=== PATIENT | male | born 1930 | race Caucasian/White ===

== ENCOUNTER → 2016-10-07 | Outpatient (CLI) | payer OTHER, BC ==
[2016-10-07 10:02] LABS: BASOPHILS # (AUTO) 0.06 10*3/UL; BASOPHILS % (AUTO) 0.7 % (0-1); EOSINOPHILS % (AUTO) 3.7 % (0-8); HEMATOCRIT 38.9 % (42.0-52.0); HEMOGLOBIN 13.1 g/dL (14.0-18.0); LYMPHOCYTES # (AUTO) 2.48 10*3/uL; MEAN CORPUSCULAR HEMOGLOBIN 32.8 PG (27-31); MEAN CORPUSCULAR HGB CONC 33.7 g/dL (33-37); MEAN CORPUSCULAR VOLUME 97.3 FL (80-90); MONOCYTES # (AUTO) 0.67 10*3/UL (0.3-0.8); MONOCYTES % (AUTO) 8.3 % (5-15); NEUTROPHILS # (AUTO) 4.58 10*3/UL; NEUTROPHILS % (AUTO) 56.6 % (50-80)
[2016-10-07 10:19] LABS: PLATELET MORPHOLOGY COMMENT NORMAL MORPHOLOGY (NORM); RBC MORPHOLOGY COMMENT NORMAL MORPHOLOGY (NORM); WBC MORPHOLOGY COMMENT NORMAL MORPHOLOGY (NORM)
[2016-10-07 10:29] LABS: BUN/CREATININE RATIO 26.66 (6-20); CALCIUM 9.1 mg/dL (8.7-10.7); CHOL/HDL RATIO 5.93 RATIO (0-4.0); LDL CHOLESTEROL,CALCULATED 128.2 mg/dL
== END ==
LOC: LAB 09:35
PROVIDERS: ATTEND Internal Medicine
DX: E03.9 Hypothyroidism, unspecified (principal); E78.00 Pure hypercholesterolemia, unspecified; I25.10 Atherosclerotic heart disease of native coronary artery without angina pectoris
CPT/HCPCS: 36415; 80053; 80061; 84443; 85025

== ENCOUNTER → 2016-10-15 | Outpatient (CLI) | payer OTHER, BC | LOC: MMPC 11:11 | PROVIDERS: ATTEND Internal Medicine | DX: R19.4 Change in bowel habit (principal); N40.0 Benign prostatic hyperplasia without lower urinary tract symptoms; R53.83 Other fatigue; M15.9 Polyosteoarthritis, unspecified | CPT/HCPCS: 99214; G0463 ==

== ENCOUNTER → 2016-11-23 | Outpatient (CLI) | payer OTHER, BC | LOC: LAB 10:57 | PROVIDERS: ATTEND Internal Medicine | DX: N40.0 Benign prostatic hyperplasia without lower urinary tract symptoms (principal); Z12.5 Encounter for screening for malignant neoplasm of prostate | CPT/HCPCS: 36415; G0103 ==

== ENCOUNTER → 2016-11-25 | Outpatient (CLI) | payer OTHER, BC | LOC: MMPC 11:11 | PROVIDERS: ATTEND Internal Medicine | DX: R35.0 Frequency of micturition (principal); E03.9 Hypothyroidism, unspecified; M15.9 Polyosteoarthritis, unspecified; G47.34 Idiopathic sleep related nonobstructive alveolar hypoventilation | CPT/HCPCS: 99214; G0463 ==

== ENCOUNTER → 2016-12-07 | Outpatient (CLI) | payer OTHER, BC | LOC: MMPC 11:11 | PROVIDERS: ATTEND Physician Assistant | DX: Z48.02 Encounter for removal of sutures (principal) ==